=== PATIENT | female | born 1965 | race Hispanic/Latino ===

== ENCOUNTER 2017-10-13 15:56 | Emergency (ER) | payer SELFPAY ==
[~2017-10-13 15:56] MED LIST: OSEL75 PO
== END 2017-10-13 16:22 | disposition home or self-care (01) ==
LOC: EDH 15:56
DX: M77.11 Lateral epicondylitis, right elbow (principal); E07.9 Disorder of thyroid, unspecified
CPT/HCPCS: 99281